=== PATIENT | male | born 1935 | race Caucasian/White ===

== ENCOUNTER 2016-11-17 09:42 | Emergency (ER) | payer OTHER ==
--- NOTE | ~2016-11-17 | CT4 ---
[facility] A Service [facility] RADIOLOGY TEXT RESULTS PATIENT: KENTRELL ARCHER LOCATION: SED : 37 UNIT #: [id number] AGE: [address]: Marcio Carr MD SEX: M ORDER DR: [id number] [place] [id number] E MR#: [id number] Acc #: [id number] NAME: KENTRELL ARCHER. : 1935 SEX: M STUDY DATE/TIME: 11/17/2016 10:37 UNIT: SED ROOM: STUDY DESCRIPTION: CT Abd and Pelv Wo Cont Attending Physician: Marcio Carr M.D. Ordering Physician: Marcio Carr M.D. Primary Care Physician: Edil Lugo M.D. MEDICAL IMAGING REPORT This report is preliminary unless electronic signature is present. EXAM CT abdomen and pelvis without contrast INDICATIONS Blood in urine for iqv-ba-oraog days. TECHNIQUE CT abdomen and pelvis performed without contrast. Coronal and sagittal reformatted images were obtained. This CT examination was performed with one or more of the following radiation dose reduction techniques: automatic exposure control, adjustment of mA and/or kV according to patient size, and iterative reconstruction. COMPARISON 10/04/2011. FINDINGS Evaluation of the lung bases shows cardiomegaly. Trace pleural fluid. Scarring/atelectasis in the lung bases. The liver and gallbladder are unremarkable. The spleen is unremarkable. The left kidney is unremarkable. Stable large cyst with a central stellate appearing calcification in the right kidney. Stable smaller cyst more inferiorly within the right kidney. No evidence for kidney stone or hydronephrosis. The adrenal glands are unremarkable. The pancreas is unremarkable. Large amount of gas in the stomach. No evidence for bowel obstruction. PELVIS: Mild prostatomegaly. The urinary bladder is relatively decompressed. No inflammatory stranding around the urinary bladder. Colon is unremarkable. Normal appendix. No free fluid. Bone windows show degenerative change lumbar spine. IMPRESSION [facility] A Service [facility] RADIOLOGY TEXT RESULTS PATIENT: KENTRELL ARCHER [place] [facility] [place] 37 UNIT #: [id number] AGE: [address]: Marcio Carr MD SEX: M ORDER DR: 1. No evidence for renal stone. 2. Urinary bladder is relatively decompressed. No evidence of any inflammatory stranding to suggest cystitis. 3. Stable renal cysts on the right. Dictated by... Juan Manuel Bashir M.D. THIS IS AN ELECTRONICALLY VERIFIED REPORT Juan Manuel Bashir M.D. at 11/18/2016 7:35 AM BESSIE/osvaldo TD: 11/18/2016 06:35 JOB #: [id number] MEDICAL IMAGING REPORT Page 1 of 1
[~2016-11-17 09:42] MED LIST: ALDACTONE25 MG PO; ASPIRIN81 MG PO; CITALOPRAM HBR10 MG PO; CRESTOR40 MG PO; K-DUR10 MEQ PO; OMEPRAZOLE20 M2 PO; SPIRIVA18 MCG INH; XARELTO20 MG PO
[2016-11-17 10:31] LABS: URINE APPEARANCE SL CLOUDY; URINE BLOOD 3+ (NEG); URINE GLUCOSE NEG (NORM); URINE KETONE TRACE (NEG); URINE LEUKOCYTE ESTERASE NEG (NEG); URINE NITRATE NEG (NEG); URINE PH 6.5 (5-8); URINE PROTEIN 2+ (NEG); URINE SOURCE CLEAN CATCH
[2016-11-17 10:32] LABS: MICRO INDICATED? YES; URINE BILIRUBIN NEG (NEG); URINE COLOR RED; URINE RBC INNUM /[HPF] (0-2)
[2016-11-17 10:33] LABS: CULTURE INDICATED? YES; URINE BACTERIA NEG (NEG)
[2016-11-17 11:20] LABS: BASOPHIL# 0.1 X10e3 (0-0.3); BASOPHIL% 0.9 % (0-2.5); EOSINOPHIL# 0.4 X10e3 (0-0.7); EOSINOPHIL% 6.1 % (0.0-7.0); HEMATOCRIT 30.5 % (38.0-50.0); HEMOGLOBIN 9.7 gm/dL (13.0-16.0); LYMPHOCYTE# 0.6 X10e3 (1.0-3.5); MEAN CELL VOLUME 84.8 FL (83-96); MEAN CORPUSCULAR HGB CONC 31.8 g/dL (30-36); MONOCYTE# 0.7 X10e3 (0-1.0); MONOCYTE% 10.4 % (3.0-12.0); NEUTROPHIL# 4.7 X10e3 (1.5-7.1); NEUTROPHIL% 73.6 % (40-75); RED BLOOD COUNT 3.59 X10e (3.90-5.60); RED CELL DISTRIBUTION WIDTH 20.5 % (11.0-15.5)
[2016-11-17 11:28] LABS: INR 2.1; PROTHROMBIN TIME (PATIENT) 23.7 SECONDS (9.5-12.4)
[2016-11-17 11:35] LABS: PARTIAL THROMBOPLASTIN TIME 33.9 SECONDS (25.6-38.1)
[2016-11-17 11:41] LABS: ALBUMIN SERUM 3.9 g/dL (3.5-5.0); BILIRUBIN,TOTAL 0.9 mg/dL (0.2-2.0); BUN/CREATININE RATIO 16.92; CALCIUM SERUM 9.2 mg/dL (8.4-10.2); CREATININE SERUM 1.3 mg/dL (0.6-1.4); GLOM FILT RATE Estimated 51.9 mL/min (>60); PROTEIN TOTAL SERUM 6.5 g/dL (6.0-8.3)
[2016-11-17 11:43] LABS: MEAN PLATELET VOLUME 9.8 FL (6.5-11.5); WHITE BLOOD COUNT 6.2 X10e3 (4.0-10.5)
[2016-11-17 11:58] LABS: PLATELET COUNT 89 X10e3 (140-420)
[2016-11-17 11:59] LABS: DIFF IND NO
[2016-11-21 00:51] LABS: PSA, FREE 12.97 ng/mL (())
== END 2016-11-17 15:41 ==
LOC: SED 09:42
PROVIDERS: Emergency Medicine
DX: K92.2 Gastrointestinal hemorrhage, unspecified (principal); R31.9 Hematuria, unspecified; I10 Essential (primary) hypertension; J44.9 Chronic obstructive pulmonary disease, unspecified; E78.00 Pure hypercholesterolemia, unspecified; Z95.1 Presence of aortocoronary bypass graft; Z87.891 Personal history of nicotine dependence; Z79.899 Other long term (current) drug therapy
CPT/HCPCS: 36415; 74176; 80053; 81003; 82270; 84153; 84154; 85025; 85610; 85730; 87086; 96374; 99284; C9113